=== PATIENT | female | born 1940 | race Caucasian/White ===

== ENCOUNTER → 2016-10-22 | Outpatient (CLI) | payer OTHER, BC ==
[~2016-10-22] VITALS: Ht 167.6 cm; Wt 80.2 kg
[~2016-10-22] MED LIST: ALEVE220 M1 PO; ALEVE220 MG PO; AVAPRO75 MG PO; BENADRYL25 MG PO; COZAAR 50 MG TA50 M2 PO; DURAGESIC1 EAC2 TD; FENTANYL PA12 MCG/HR TD; FENTANYL PA12 MCG/HR TP; FENTANYL PA25 MCG/HR TP; HYDROCODON-ACE1 EAC7 PO; HYDROCODON-ACE1 EACH PO; HYDROCODONE-AP1 EAC6 PO; KEFLEX500 M1 PO; LEVOTHYROXIN0.025 MG PO; LIDODERM 5%1 PATCH TOP; LISINOPRIL10 MG PO; LIVALO2 MG PO; MELOXICAM7.5 MG PO; MIRAPEX0.25 MG PO; MOBIC7.5 M1 PO; NORCO 5-325 TA1 EACH PO; PREVACID 30MG C30 M1 PO; REMERON15 MG PO; SAVELLA50 MG PO; SOMA250 MG PO; VOLTAREN GEL 1100 GM TOP; XANAX 0.5 MG0.5 MG PO; ZOLOFT 50 MG TA50 M1 PO
--- NOTE | ~2016-10-22 | HPC ---
[facility] [place] [address] PAIN MANAGEMENT CONSULTATION Name: MOHAN ELIZABETH Room #: REG Lynn Ludwin.#: [id number] Admission: 10/22/16 Attend Phys: Toney Springer DO Discharge: Date of : 41 Report #: [id number] THIS REPORT FOR: //name// CC: Brayan Springer The patient is 76-year-old female typically treated for chronic pain issues, status post lumbar decompressive laminectomy and has DJD primarily affecting knees. She has been generally stable on Duragesic 12 mcg q. 72 hours, and hydrocodone 5/325 fairly infrequent use 1 or 2 to a day. Uses mirtazapine for sleep h.s. and for some anxiety issues. Last urine drug screen 07/31/2016 was positive for prescribed medications. The patient returns to pain clinic today. She is a little bit bradycardic, pulse in the 40s but she denies specific hypotension or presyncopal symptoms. Blood pressure is otherwise low but normal. She is alert and oriented to person, place, and time, judged to be a reasonable historian. Some ongoing shoulder issues, slight decreased range of motion to abduction. Primary pain is axial back and knees. She has been back and forth with multiple orthopedic surgeons. I suspect she does require total knee arthroplasty; however, she is able to ambulate and is getting around generally well. Gait is minimally antalgic. Hence I support her decision to simply treat conservatively. She and her are downsizing their 4500 square feet home to a 1400 square foot condo. She has been going through a lot of boxes in the basement. She states that she is doing this at a reasonable space and has not had significant exacerbation of axial back pain. Rates her current pain score anywhere from 4-6 on a 0-10 visual analog scale. PHYSICAL EXAMINATION: Again, a little bradycardic but otherwise no change from last visit, alert and oriented to person, place and time. She does appear to be reasonable historian (at times, she has been a little "scattered." Today, she seems much more on point.) NECK: Cervical range of motion is adequate. Right arm slightly decreased abduction. Strength is about 4/5 to all muscle groups tested. MUSCULOSKELETAL: Rises from the chair easily, gait is generally tandem. Diffuse tenderness across the low back. Lumbar flexion is limited. ASSESSMENT: Patient has spinal cord stimulator in place which she uses fairly infrequently. States she had some trouble trying to chart the device. I suggest at the next visit, we will have [employer] rep here to revise stimulation patterns and review charging the device (patient notes that she has had some technical issues with charging the SCS generator). [facility] [address] [place] [address] PAIN MANAGEMENT CONSULTATION Name: MOHAN ELIZABETH Room #: REG GIGI Arteaga#: [id number] Admission: 10/22/16 Attend Phys: Toney Springer DO Discharge: Date of : 41 Report #: [id number] We spent a prolonged visit today discussing general concerns with Ms. Elizabeth. She was seen for approximately 25 minutes from 9 a.m. to 9:25 a.m. Greater than 50% of this time was spent counseling the patient. Discharged in good and stable condition. <ELECTRONICALLY SIGNED> By: Toney Springer DO 10/23/16 0904 [id number] Toney Springer DO /nt
[2016-10-22 09:08] VITALS: BP 137/62
== END | disposition home or self-care (01) ==
LOC: PAIN 07:05
DX: R00.1 Bradycardia, unspecified (principal); M54.5 Low back pain; M25.562 Pain in left knee; M25.561 Pain in right knee

== ENCOUNTER → 2016-12-17 | Outpatient (CLI) | payer OTHER, BC ==
[~2016-12-17] VITALS: Ht 167.6 cm; Wt 81.9 kg
--- NOTE | ~2016-12-17 | HPC ---
[facility] [place] [address] [place] [address] PAIN MANAGEMENT CONSULTATION Name: DUANEMOHAN B Room #: REG GIGI Arteaga#: [id number] Admission: 12/17/16 Attend Phys: Toney Springer DO Discharge: Date of : 41 Report #: [id number] THIS REPORT FOR: //name// CC: Brayan Springer HISTORY OF PRESENT ILLNESS: The patient is a 76-year-old female being treated for lumbar radiculopathy status post decompressive laminectomy, DJD affecting knees and shoulders requiring complex medication management. Last seen in the pain clinic 07/31/2016, continued on baseline medication including Duragesic 12 mcg q.72 hours, hydrocodone 5/325 one tablet p.r.n., limit 75 tablets for 30 days. We had trialed mirtazapine at bedtime though it is unclear whether she is using it and meloxicam 7.5 b.i.d, she uses p.r.n. Returns to pain clinic today noting pain in her knees and shoulders ____ problematic. She is also complaining of more radicular component of pain in her legs. She thinks her knee pain is actually more radicular in nature. She has seen 3 different orthopedic surgeons, Dr. Serg Raman, Dr. Hooker and Dr. Petty, all suggesting while she does have some component of DJD in her knees, her primary pathology is in her back. We spent a prolonged visit today, greater than 25 minutes was spent with the patient. We reviewed her bilateral knee x-rays from 05/23/2016 noting bilateral tricompartment osteoarthritis. There was a 7 mm calcific body in the posterior aspect medial compartment of the right knee. We reviewed MRI of the lumbar spine from 2012, which noted prior fusion L4 through S1 There was a little central stenosis at L2-L3 down to 7-8 mm, bilateral facet hypertrophy at L3-L4, noted facet degenerative changes with a small disk extrusion at this level. Canal diameter is well maintained throughout the fused segment. CT of the lumbar spine was accomplished in September 2016, reviewing this reading, again pedicle screws and rafat fixation noted L4 through S1, facet degenerative changes at L2-L3, 5 mm ligamentum flavum hypertrophy contributing at this point to fairly severe central stenosis at 6 mm. L3-L4 similarly shows broad-based disk protrusion with central canal decompressed laminectomy and the fusion level below this with canal patent. PHYSICAL EXAMINATION: GENERAL: A 76-year-old female, alert and oriented to person, place, and time, judged to be a reasonable historian. VITAL SIGNS: BMI is 29.2 kilograms per meter squared. Vital signs stable. MUSCULOSKELETAL: Rises from chair fairly easily. Gait is generally tandem. Diffuse tenderness across the low back, no dramatic pathology noted. Lower extremity strength is generally symmetric. Modestly positive straight leg raise on the left. The patient tells me that she and her have moved out of their larger home they lived in for many years. [place] [address] PAIN MANAGEMENT CONSULTATION Name: MOHAN ZEPEDA Room #: REG CLI Jenni#: [id number] Admission: 12/17/16 Attend Phys: Toney Springer DO Discharge: Date of : 41 Report #: [id number] redoing a condominium that they are moving into. It is nearly a third the size of their prior home. They are anticipating to join their "down sized" living; however, living with friends while home is obviously is a bit distressful, but the patient says she is doing reasonably well. We reviewed the fact that opiate medications are being used to provide analgesia adequate to support activities of daily living, not attempting to achieve a specific pain score on the 0-10 Visual Analog Scale. The current opiate medications are providing sufficient analgesia to allow the patient to participate in activities of daily living. The patient is not exhibiting any aberrant behavior suggestive of drug diversion. The patient is not having any adverse reactions to medications. The patient is not suffering from daytime somnolence or mental acuity changes. The patient is managing opiate-induced constipation with appropriate wbwa-jty-sdeksmi agents and dietary considerations. The patient was counseled on concern for caution with operating a motor vehicle while using opiate medications. A physical exam was performed and the patient's functional status was evaluated. All patients with back pain were advised against the bed rest greater than 4 days and were advised to return to normal activities. Pain score assessment was noted and the treatment plan was reviewed with the patient. All current medications, both prescribed and OTC were reviewed and reconciled on the electronic medical record. Tobacco screening was accomplished and smoking cessation was advised when indicated. BMI was noted and diet/exercise modification was recommended for all patients following outside normal parameters. I reviewed with the patient today their responsibilities to safeguard prescription medications, reviewed their responsibility to utilize medications only as prescribed by the physician. They are to seek and receive pain medications only from 1 physician group ( [facility]). They are to use 1 pharmacy and keep the clinic informed if they change pharmacies. Their responsibilities include making followup visits in a timely fashion and to avoid abrupt discontinuation of medication usage. Their responsibilities further include bringing their medications (bottles from the pharmacy with residual pills) to the visit for possible confirmation of pill counts and the patient understands it is their responsibility to submit to random drug screens to ensure both that the medications prescribed are present, and that no other controlled substances are present. All prescriptions provided today were generated electronically. ASSESSMENT: Lumbar radiculopathy status post decompressive laminectomy; degenerative joint disease affecting knees; some shoulder pain requiring complex medication management, stable on baseline medications. [facility] [address] [place] [address] PAIN MANAGEMENT CONSULTATION Name: MOHAN ZEPEDA [facility] [id number] Admission: 12/17/16 Attend Phys: Toney Springer DO Discharge: Date of : 41 Report #: [id number] RECOMMENDATION: Renew Duragesic 12 mcg q.72 hours, hydrocodone 5/325 as needed for pain, 2-3 tablets, limit 75 tablets for 30 days. By: [id number] Toney Springer DO /nt
== END ==
LOC: PAIN 12:37
DX: M54.16 Radiculopathy, lumbar region (principal); M96.1 Postlaminectomy syndrome, not elsewhere classified; M17.0 Bilateral primary osteoarthritis of knee; M19.012 Primary osteoarthritis, left shoulder; M19.011 Primary osteoarthritis, right shoulder; I10 Essential (primary) hypertension

== ENCOUNTER → 2017-01-15 | Outpatient (CLI) | payer OTHER, BC ==
[~2017-01-15] VITALS: Ht 167.6 cm; Wt 80.5 kg
[~2017-01-15] MED LIST changes: +ZANAFLEX4 MG PO
--- NOTE | ~2017-01-15 | HPC ---
[facility] [place] [address] PAIN MANAGEMENT CONSULTATION Name: MOHAN ZEPEDA Room #: REG Lynn Arteaga#: [id number] Admission: 01/15/17 Attend Phys: Toney Springer DO Discharge: Date of : 41 Report #: [id number] THIS REPORT FOR: //name// CC: Brayan Springer HISTORY OF PRESENT ILLNESS: The patient is a 77-year-old female well known to the pain clinic, typically treated for lumbar radiculopathy status post decompressive laminectomy, degenerative joint disease affecting bilateral knees and to some degree, shoulders, requiring complex medication management. Last seen in the pain clinic 12/17/2016, continued on Duragesic 12 mcg q. 72 hours, hydrocodone 5/325 one tablet 2-3 times a day, limit 75 tablets for 30 days. Last urine drug screen 07/23/2016 was positive for prescribed medication. Opiate consent to treat contract was signed on 05/23/2016. The patient returns to pain clinic today, seen in the company of her who is supportive. She was seen for a prolonged visit from 10:55-11:25 greater than 50% of the 30-minute visit was spent counseling the patient. She notes the mirtazapine we had a trialed to help with insomnia and some chronic anxiety and depression, she self-discontinued due to cognitive impairment. Does complain of ongoing issues with insomnia. We did discuss sleep hygiene at length prior to this and we reviewed this again today (no reading or watching TV in the bed, get out of bed if she does not fall asleep within 15-30 minutes. No alcohol after about 6:00 p.m.). The patient complains primarily pain in her knees with some ongoing pain in the shoulders and back. She has had apparently steroid and Synvisc injections in her knees with no efficacy. She is seen multiple orthopedic surgeon, many suggesting total knee arthroplasties. I had ordered x-rays of her bilateral knees which was accomplished last summer showing tricompartment arthritis in both knees. We reviewed those today. The patient states she ultimately decided that she should move forward with total knee arthroplasty. She had prior seen Dr. Zuleta who I am told her and has a very good reputation for total knee arthroplasty. She has asked for another name and we suggested Dr. Scout Isaacs. For some reason, she had a personality clash with Dr. Serg Raman and will prefer not to follow up with him. I assured her that Dr. Raman is a very competent surgeon. She has been using Voltaren gel topically with some efficacy for her knees. She notes they have changed locations and now live in a home that is [facility] with the bedrooms on the second floor. Her attests the fact that she has a very difficult time climbing the stairs. She claims that secondary to knee pain. They are asking for prescription for some sort of electronic device to carry the patient up and down the stairs. I told them that I was unfamiliar with writing for this, but I would recommend that she follow up with an orthopedic surgeon who may have a better ability to make objective determination if any assistance [address] [address] PAIN MANAGEMENT CONSULTATION Name: MOHAN ZEPEDA Room #: REG GIGI Arteaga#: [id number] Admission: 01/15/17 Attend Phys: Toney Springer, DO Discharge: Date of : 41 Report #: [id number] device was warranted. I am not certain that insurance would cover such a device. The patient notes she lost the [employer] spinal cord stimulator generator in the move. Her stimulator has now lost charge. She notes when she was using it prior it gave her "soothing" affect and did decrease pain, though she is quick to note that it "did NOT make her pain free". I again, reviewed with the patient that nothing we are going to do will make her "pain free" we are, however, attempting to simply minimize symptoms to the point that she is little more functional. The patient notes her pain score is 5/10 today. PHYSICAL EXAMINATION: GENERAL: Reveals a 77-year-old female, BMI is 20.6 kilograms per meter squared. VITAL SIGNS: Stable as noted in the EMR. NEUROLOGIC: Alert and oriented to person, place and time, judged to be a reasonable historian. MUSCULOSKELETAL: Upper extremity strength is preserved, shoulder range of motion is adequate. Subjective pain in her bilateral knees, modestly antalgic gait. EXTREMITIES: Directions inspection of the knees reveals no ballotable edema, no crepitance with patellar deviation, medial, lateral, and collateral as well as anterior, posterior, anterior and posterior cruciate ligaments, all appear intact. She does have some osseous hypertrophy about noticeable in both knees. We reviewed the fact that opiate medications are being used to provide analgesia adequate to support activities of daily living, not attempting to achieve a specific pain score on the 0-10 Visual Analog Scale. The current opiate medications are providing sufficient analgesia to allow the patient to participate in activities of daily living. The patient is not exhibiting any aberrant behavior suggestive of drug diversion. The patient is not having any adverse reactions to medications. The patient is not suffering from daytime somnolence or mental acuity changes. The patient is managing opiate-induced constipation with appropriate aebv-jyr-zqrljrl agents and dietary considerations. The patient was counseled on concern for caution with operating a motor vehicle while using opiate medications. A physical exam was performed and the patient's functional status was evaluated. All patients with back pain were advised against the bed rest greater than 4 days and were advised to return to normal activities. Pain score assessment was noted and the treatment plan was reviewed with the patient. All current medications, both prescribed and OTC were reviewed and reconciled on the electronic medical record. Tobacco screening was accomplished and smoking cessation was advised when indicated. BMI was noted and diet/exercise modification was recommended for all patients following outside normal parameters. [address] [address] PAIN MANAGEMENT CONSULTATION Name: MOHAN ZEPEDA Room #: REG [facility] Ludwin.#: [id number] Admission: 01/15/17 Attend Phys: Toney Springer DO Discharge: Date of : 41 Report #: [id number] I reviewed with the patient today their responsibilities to safeguard prescription medications, reviewed their responsibility to utilize medications only as prescribed by the physician. They are to seek and receive pain medications only from 1 physician group ([facility]). They are to use 1 pharmacy and keep the clinic informed if they change pharmacies. Their responsibilities include making followup visits in a timely fashion and to avoid abrupt discontinuation of medication usage. Their responsibilities further include bringing their medications (bottles from the pharmacy with residual pills) to the visit for possible confirmation of pill counts and the patient understands it is their responsibility to submit to random drug screens to ensure both that the medications prescribed are present, and that no other controlled substances are present. All prescriptions provided today were generated electronically. ASSESSMENT: 1. Lumbar radiculopathy status post decompressive laminectomy with chronic axial back pain. 2. Degenerative joint disease, primarily knees with some component of shoulder pain, again requiring complex medication management. RECOMMENDATIONS: After discussion with the patient today, we elected to continue baseline narcotic unchanged, Duragesic 12 mcg q. 72 hours and hydrocodone 5/325 one tablet 2-3 times a day, limit 75 tablets for 30 days. She is not having any problems with daytime somnolence, mental acute changes, constipation. She is complaining of ongoing insomnia. Again, we reviewed his sleep hygiene concerns and I have taken the liberty of writing for tizanidine 4 mg at bedtime p.r.n. muscle spasm or insomnia, 30 tablets with 1 refill. FOLLOWUP: In 2 months for reevaluation. Prior discontinued Meloxicam due to gastroesophageal reflux. She does feel Voltaren gel topically is helpful and I did renew prescription for this as well. We will arrange the [employer] available patients next visit to interrogate and help instruct on recharging the now depleted generator. <ELECTRONICALLY SIGNED> By: Toney Springer DO 01/18/17 0750 [id number] Toney Springer DO /nt
[2017-01-15 10:50] VITALS: BP 121/60
== END | disposition home or self-care (01) ==
LOC: PAIN 07:15
DX: M54.16 Radiculopathy, lumbar region (principal); G89.29 Other chronic pain; M17.0 Bilateral primary osteoarthritis of knee; M25.511 Pain in right shoulder; M25.512 Pain in left shoulder; F41.9 Anxiety disorder, unspecified; F11.20 Opioid dependence, uncomplicated; F32.9 Major depressive disorder, single episode, unspecified; Z98.890 Other specified postprocedural states

== ENCOUNTER → 2017-03-15 | Outpatient (CLI) | payer OTHER, BC ==
[~2017-03-15] VITALS: Ht 167.6 cm; Wt 78.2 kg
--- NOTE | ~2017-03-15 | HPC ---
[facility] [place] [address] PAIN MANAGEMENT CONSULTATION Name: DUANEMOHAN B [facility] [id number] Admission: 03/15/17 Attend Phys: Toney Springer DO Discharge: Date of : 41 Report #: [id number] THIS REPORT FOR: //name// CC: Brayan Springer DATE OF SERVICE: 03/15/2017 HISTORY OF PRESENT ILLNESS: The patient is a 77-year-old female being treated for lumbar radiculopathy, status post decompressive laminectomy; DJD affecting both knees requiring complex medication management. Last seen in pain clinic on 01/15/2017. Urine drug screen back in July was positive for prescribed medications. She returns to pain clinic today. We had a prolonged visit. I did ask [employer] to come and interrogate the patient's stimulator. The patient states she feels she is "deteriorating." She notes left shoulder remains problematic, bilateral knee pain, she has had steroid injections and Synvisc injections, there is really no efficacy. Notes her legs get weak with walking. She notes if she goes greater than 72 hours with Duragesic patch that she starts to have increasing pain realizing that the medicine is helping. She has gone through 75 hydrocodone 5/325 in 30 days, actually anywhere from 0 to 5 tablets. Last tablet was this morning. PHYSICAL EXAMINATION: Shows a 77-year-old female, BMI is 27.8 kilograms per meter squared. Vital signs are stable as noted in the EMR. Rises from chair using armrest. Gait is tandem. Lower extremity strength is generally preserved at this time. Straight leg raise is negative. Diffuse tenderness across the low back. The stimulator was interrogated; it has reached a terminal discharge. We have instructed the patient about trying to recharge the device and we will then review stimulation patterns. We reviewed the fact that opiate medications are being used to provide analgesia adequate to support activities of daily living, not attempting to achieve a specific pain score on the 0-10 Visual Analog Scale. The current opiate medications are providing sufficient analgesia to allow the patient to participate in activities of daily living. The patient is not exhibiting any aberrant behavior suggestive of drug diversion. The patient is not having any adverse reactions to medications. The patient is not suffering from daytime somnolence or mental acuity changes. The patient is managing opiate-induced constipation with appropriate jyjy-sfs-joahqip agents and dietary considerations. The patient was counseled on concern for caution with operating a motor vehicle while using opiate medications. A physical exam was performed and the patient's functional status was evaluated. All patients with back pain were advised against the bed rest greater than [address] [address] PAIN MANAGEMENT CONSULTATION Name: MOHAN ZEPEDA Room #: REG GIGI Arteaga#: [id number] Admission: 03/15/17 Attend Phys: Toney Springer DO Discharge: Date of : 41 Report #: [id number] days and were advised to return to normal activities. Pain score assessment was noted and the treatment plan was reviewed with the patient. All current medications, both prescribed and OTC were reviewed and reconciled on the electronic medical record. Tobacco screening was accomplished and smoking cessation was advised when indicated. BMI was noted and diet/exercise modification was recommended for all patients following outside normal parameters. I reviewed with the patient today their responsibilities to safeguard prescription medications, reviewed their responsibility to utilize medications only as prescribed by the physician. They are to seek and receive pain medications only from 1 physician group ( [facility]). They are to use 1 pharmacy and keep the clinic informed if they change pharmacies. Their responsibilities include making followup visits in a timely fashion and to avoid abrupt discontinuation of medication usage. Their responsibilities further include bringing their medications (bottles from the pharmacy with residual pills) to the visit for possible confirmation of pill counts and the patient understands it is their responsibility to submit to random drug screens to ensure both that the medications prescribed are present, and that no other controlled substances are present. All prescriptions provided today were generated electronically. ASSESSMENT: Lumbar radiculopathy, status post decompressive laminectomy; degenerative joint disease affecting both knees requiring complex medication management. RECOMMENDATIONS: Continue Duragesic 12 mcg q. 72 hours; hydrocodone 5/325, limit 75 tablets for 30 days; tizanidine 4 mg at bedtime. Follow up in 2 months for reevaluation. <ELECTRONICALLY SIGNED> By: Toney Springer DO 03/17/17 1252 [id number] Toney Springer DO /nt
[2017-03-15 13:15] VITALS: BP 102/65
== END ==
LOC: PAIN 06:45
DX: M54.16 Radiculopathy, lumbar region (principal); M96.1 Postlaminectomy syndrome, not elsewhere classified; M17.0 Bilateral primary osteoarthritis of knee

== ENCOUNTER → 2017-05-10 | Outpatient (CLI) | payer OTHER, BC ==
[~2017-05-10] VITALS: Ht 167.6 cm; Wt 78.2 kg
--- NOTE | ~2017-05-10 | HPC ---
[facility] [place] [address] PAIN MANAGEMENT CONSULTATION Name: DUANEMOHAN B Room #: [facility] [id number] Admission: 05/10/17 Attend Phys: Toney Springer DO Discharge: Date of : 41 Report #: [id number] THIS REPORT FOR: //name// CC: Brayan Springer The patient is a 77-year-old female, long treated for chronic pain issues, status post lumbar decompressive laminectomy with DJD affecting knees and now left shoulder, requiring complex medication management. Last visit 03/15/2017, she was continued on baseline medication including Duragesic 12 mcg q.72 hours and hydrocodone 5/325 one tablet 2-3 times a day, limit 75 tablets for 30 days. Urine drug screen at that time was positive for prescribed medications. The patient also uses Voltaren gel topically, and tizanidine 4 mg at bedtime for muscle spasm and for sedation. She returns to pain clinic today, again typically she was having problems with her back and knees. She notes recently she is having increasing pain in her left shoulder. She did see an orthopedic surgeon who suggested she may require left shoulder replacement. Physical exam does show decreased both active and passive range of motion in the left shoulder with pain to active and passive rotation as well. Knees actually appear pretty unremarkable. Gait is tandem today. We reviewed the fact that opiate medications are being used to provide analgesia adequate to support activities of daily living, not attempting to achieve a specific pain score on the 0-10 Visual Analog Scale. The current opiate medications are providing sufficient analgesia to allow the patient to participate in activities of daily living. The patient is not exhibiting any aberrant behavior suggestive of drug diversion. The patient is not having any adverse reactions to medications. The patient is not suffering from daytime somnolence or mental acuity changes. The patient is managing opiate-induced constipation with appropriate ngtm-muk-rypyrym agents and dietary considerations. The patient was counseled on concern for caution with operating a motor vehicle while using opiate medications. A physical exam was performed and the patient's functional status was evaluated. All patients with back pain were advised against the bed rest greater than 4 days and were advised to return to normal activities. Pain score assessment was noted and the treatment plan was reviewed with the patient. All current medications, both prescribed and OTC were reviewed and reconciled on the electronic medical record. Tobacco screening was accomplished and smoking cessation was advised when indicated. BMI was noted and diet/exercise modification was recommended for all patients following outside normal parameters. I reviewed with the patient today [place] [address] PAIN MANAGEMENT CONSULTATION Name: MOHAN ZEPEDA Room #: REG [facility] GregorAllan#: [id number] Admission: 05/10/17 Attend Phys: Toney Springer DO Discharge: Date of : 41 Report #: [id number] prescription medications, reviewed their responsibility to utilize medications only as prescribed by the physician. They are to seek and receive pain medications only from 1 physician group ( [facility]). They are to use 1 pharmacy and keep the clinic informed if they change pharmacies. Their responsibilities include making followup visits in a timely fashion and to avoid abrupt discontinuation of medication usage. Their responsibilities further include bringing their medications (bottles from the pharmacy with residual pills) to the visit for possible confirmation of pill counts and the patient understands it is their responsibility to submit to random drug screens to ensure both that the medications prescribed are present, and that no other controlled substances are present. All prescriptions provided today were generated electronically. PHYSICAL EXAMINATION: Shows a 77-year-old female, BMI is 29.7 kg/m2. Vital signs stable as noted on the EMR. Again, gait is generally tandem. Very tender left shoulder, decreased range of motion. Knees are unremarkable as far as ligaments. There is a little ballotable edema, no significant pain with patellar deviation. 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 RECOMMENDATION: I have taken the liberty of renewing Duragesic 12 mcg q.72 hours, hydrocodone 5/325, limit 75 tablets for 30 days, Voltaren gel topically and tizanidine at bedtime. Follow up in 2 months for reevaluation. <ELECTRONICALLY SIGNED> By: Toney Springer DO 05/12/17 0801 [id number] Toney Springer DO /nt
[2017-05-10 14:48] VITALS: BP 135/78
== END | disposition home or self-care (01) ==
LOC: PAIN 06:53
DX: Z76.0 Encounter for issue of repeat prescription (principal); G89.29 Other chronic pain; M17.0 Bilateral primary osteoarthritis of knee; M19.012 Primary osteoarthritis, left shoulder; M54.16 Radiculopathy, lumbar region; Z79.891 Long term (current) use of opiate analgesic; Z79.899 Other long term (current) drug therapy

== ENCOUNTER → 2017-07-05 | Outpatient (CLI) | payer OTHER, BC ==
[~2017-07-05] VITALS: Ht 167.6 cm; Wt 76.7 kg
[~2017-07-05] MED LIST changes: +DURAGESIC1 EAC2 TRANSDERM
--- NOTE | ~2017-07-05 | HPC ---
[facility] [place] [address] PAIN MANAGEMENT CONSULTATION Name: DUANEMOHAN B Room #: REG [facility] [id number] Admission: 07/05/17 Attend Phys: Toney Springer DO Discharge: Date of : 41 Report #: [id number] THIS REPORT FOR: //name// CC: Brayan Springer DATE OF SERVICE: 07/05/2017 The patient is a 77-year-old female typically treated for lumbar radiculopathy status post decompressive laminectomy, DJD bilateral knees, chronic pain syndrome requiring high risk complex medication management. She was last seen in pain clinic 05/10/2017. Prior urine drug screen 03/15/2017 is positive for prescribed medications. She returns to pain clinic today noting medications are providing sufficient analgesia to participate in activities of daily living, rates her average pain as 3-4 on a VAS. Pain is exacerbated with standing and walking. Pain is primarily in the bilateral knees, shoulders and back. She notes medications are quite helpful. She is able to participate in all activities of daily living. She did ask today about CBD oil. Many patients have been asking about this. I pointed out that there are no controlled medical studies regarding this homeopathic-type product. We reviewed the fact that opiate medications are being used to provide analgesia adequate to support activities of daily living, not attempting to achieve a specific pain score on the 0-10 Visual Analog Scale. The current opiate medications are providing sufficient analgesia to allow the patient to participate in activities of daily living. The patient is not exhibiting any aberrant behavior suggestive of drug diversion. The patient is not having any adverse reactions to medications. The patient is not suffering from daytime somnolence or mental acuity changes. The patient is managing opiate-induced constipation with appropriate hadt-elr-mtpjlkq agents and dietary considerations. The patient was counseled on concern for caution with operating a motor vehicle while using opiate medications. A physical exam was performed and the patient's functional status was evaluated. All patients with back pain were advised against the bed rest greater than 4 days and were advised to return to normal activities. Pain score assessment was noted and the treatment plan was reviewed with the patient. All current medications, both prescribed and OTC were reviewed and reconciled on the electronic medical record. Tobacco screening was accomplished and smoking cessation was advised when indicated. BMI was noted and diet/exercise modification was recommended for all patients following outside normal parameters. I reviewed with the patient today their responsibilities to safeguard prescription medications, reviewed their responsibility to utilize medications [address] [address] PAIN MANAGEMENT CONSULTATION Name: MOHAN ZEPEDA Room #: REG [facility]#: [id number] Admission: 07/05/17 Attend Phys: Toney Springer DO Discharge: Date of : 41 Report #: [id number] only as prescribed by the physician. They are to seek and receive pain medications only from 1 physician group ( [facility]). They are to use 1 pharmacy and keep the clinic informed if they change pharmacies. Their responsibilities include making followup visits in a timely fashion and to avoid abrupt discontinuation of medication usage. Their responsibilities further include bringing their medications (bottles from the pharmacy with residual pills) to the visit for possible confirmation of pill counts and the patient understands it is their responsibility to submit to random drug screens to ensure both that the medications prescribed are present, and that no other controlled substances are present. All prescriptions provided today were generated electronically. PHYSICAL EXAMINATION: Shows a 77-year-old female, BMI is 27.3 kilograms per meter squared. Vital signs stable as noted in the EMR. Does have some osseous hypertrophy in her knees. No ballotable edema is noted today. Gait is modestly antalgic. Diffuse tenderness across the low back. No discrete trigger points are noted. ASSESSMENT: Lumbar radiculopathy status post decompressive laminectomy, degenerative joint disease affecting bilateral knees, chronic pain syndrome requiring high risk complex medication management. RECOMMENDATION: Continue current medication unchanged, Duragesic 12 mcg q. 72 hours, hydrocodone 5/325 one tablet 3 times a day, limit to 75 tablets for 30 days, Voltaren gel topically and tizanidine 4 mg at bedtime as needed for spasm. Follow up in 2 months for reevaluation. <ELECTRONICALLY SIGNED> By: Toney Springer DO 07/07/17 0752 [id number] Toney Springer DO /nt
[2017-07-05 13:58] VITALS: BP 106/62
== END ==
LOC: PAIN 07:34
DX: Z76.0 Encounter for issue of repeat prescription (principal); M54.16 Radiculopathy, lumbar region; M17.0 Bilateral primary osteoarthritis of knee; G89.29 Other chronic pain; Z98.890 Other specified postprocedural states; Z79.899 Other long term (current) drug therapy; M54.5 Low back pain; Z79.891 Long term (current) use of opiate analgesic; I10 Essential (primary) hypertension

== ENCOUNTER → 2017-09-13 | Outpatient (CLI) | payer OTHER, BC ==
[~2017-09-13] VITALS: Ht 167.6 cm; Wt 78.2 kg
[~2017-09-13] MED LIST changes: +CELEBREX 200 M200 M1 PO; +VOLTAREN GEL 1100 G1 TOP
--- NOTE | ~2017-09-13 | HPC ---
[facility] [place] [address] [place] [address] PAIN MANAGEMENT CONSULTATION Name: MOHAN ZEPEDA Room #: REG [facility] Jenni#: [id number] Admission: 09/13/17 Attend Phys: Toney Springer DO Discharge: Date of : 41 Report #: [id number] THIS REPORT FOR: //name// CC: Brayan Springer The patient is a 77-year-old female, long known to the pain clinic, being treated for symptomatic lumbar radiculopathy status post decompressive laminectomy, DJD bilateral knees, chronic pain syndrome requiring high risk complex medication management. The patient was last seen in the pain clinic 07/05/2017, continued on baseline medications including Duragesic at 12 mcg q.72 hours, tizanidine 4 mg t.i.d., and hydrocodone 5/325, limit 75 tablets for 30 days. She returns to pain clinic today noting medications are generally helpful. Ongoing left knee pain is worse today, she has been told she needs total knee arthroplasty, she has seen a host of orthopedic surgeons, she is hesitant to move forward. Bottom line is she has been reasonably stable with current medications, rates the pain is a 6-7 on VAS. No problems with daytime somnolence, mental acuity changes, or constipation. We reviewed the fact that opiate medications are being used to provide analgesia adequate to support activities of daily living, not attempting to achieve a specific pain score on the 0-10 Visual Analog Scale. The current opiate medications are providing sufficient analgesia to allow the patient to participate in activities of daily living. The patient is not exhibiting any aberrant behavior suggestive of drug diversion. The patient is not having any adverse reactions to medications. The patient is not suffering from daytime somnolence or mental acuity changes. The patient is managing opiate-induced constipation with appropriate crdm-zbx-eaczhuw agents and dietary considerations. The patient was counseled on concern for caution with operating a motor vehicle while using opiate medications. A physical exam was performed and the patient's functional status was evaluated. All patients with back pain were advised against the bed rest greater than 4 days and were advised to return to normal activities. Pain score assessment was noted and the treatment plan was reviewed with the patient. All current medications, both prescribed and OTC were reviewed and reconciled on the electronic medical record. Tobacco screening was accomplished and smoking cessation was advised when indicated. BMI was noted and diet/exercise modification was recommended for all patients following outside normal parameters. I reviewed with the patient today their responsibilities to safeguard prescription medications, reviewed their responsibility to utilize medications only as prescribed by the physician. They are to seek and receive pain medications only from 1 physician group ( [facility]). They are to use [address] [place] [address] PAIN MANAGEMENT CONSULTATION Name: MOHAN ZEPEDA Room #: REG [facility] Arteaga#: [id number] Admission: 09/13/17 Attend Phys: Toney Springer DO Discharge: Date of : 41 Report #: [id number] pharmacy and keep the clinic informed if they change pharmacies. Their responsibilities include making followup visits in a timely fashion and to avoid abrupt discontinuation of medication usage. Their responsibilities further include bringing their medications (bottles from the pharmacy with residual pills) to the visit for possible confirmation of pill counts and the patient understands it is their responsibility to submit to random drug screens to ensure both that the medications prescribed are present, and that no other controlled substances are present. All prescriptions provided today were generated electronically. PHYSICAL EXAMINATION: Shows a 77-year-old female, BMI is 27.8 kg/m2. Vital signs are stable as noted in the EMR. Rises from chair using armrest. Modestly antalgic gait. No ballotable edema appreciable in the knees at this time. Diffuse axial back pain. ASSESSMENT: Symptomatic lumbar radiculopathy status decompressive laminectomy, degenerative joint disease affecting bilateral knees, chronic pain syndrome requiring high risk complex medication management, stable on baseline medications. RECOMMENDATION: Renew Duragesic 12 mcg, hydrocodone 5/325, 75 tablets for 2 months. Follow up at that time, earlier if needed. We will likely get a buccal drug swab at next visit, it has been about a year since her last random drug screen. <ELECTRONICALLY SIGNED> By: Toney Springer DO 09/17/17 0943 [id number] Toney Springer DO /nt
[2017-09-13 13:26] VITALS: BP 140/64
== END ==
LOC: PAIN 06:50
DX: M17.0 Bilateral primary osteoarthritis of knee (principal); M54.16 Radiculopathy, lumbar region; Z79.899 Other long term (current) drug therapy

== ENCOUNTER → 2017-11-12 | Outpatient (CLI) | payer OTHER, BC ==
[~2017-11-12] VITALS: Ht 167.6 cm; Wt 77.5 kg
[~2017-11-12] MED LIST changes: +REQUIP 0.25 M0.25 MG PO
--- NOTE | ~2017-11-12 | HPC ---
[facility] [address] [address] PAIN MANAGEMENT CONSULTATION Name: ARACELIKaylinIrvinMOHAN Lavern Room #: REG [facility].#: [id number] Admission: 11/12/17 Attend Phys: Rachel Brand MD Discharge: Date of : 41 Report #: [id number] THIS REPORT FOR: //name// CC: Brayan Brand DATE OF SERVICE: 11/12/2017 FOLLOWUP COMPLAINT: "Here for medication refill and I have pain in my shoulders across the lower back and I have been sleeping well." FOLLOWUP HISTORY: The patient is a 77-year-old female who has been followed in the pain clinic because of chronic pain involving her shoulders, knees and low back area. She has been followed in the pain clinic because of these discomforts. She has a history of symptomatic lumbar radiculopathy and is status post decompression laminectomy with bilateral degenerative joint disease in her knees. She has been treated over the long-term with complex medication regimen management. She continues to find Duragesic, tizanidine 4 mg t.i.d. and hydrocodone efficacious. She feels that her medications continue to be helpful and would like to have them renewed at this juncture. She rates her pain as a 6-7 at this juncture. The patient and her are feeling stressed. They live in a unit where one of her neighbors continues to complain about her 's and her noise level. She feels harassed by this neighbor. This has left her extremely upset and distraught. This adds to her level of pain and discomfort. She finds that her fibromyalgia and restless leg syndrome continue to be problematic. PHYSICAL EXAMINATION: GENERAL: The patient is a well-developed, well-nourished female. Appears her stated age. She is alert and oriented x 3. Affect appears appropriate. HEENT: Head is atraumatic. Ears: Normal hearing. Eyes: Extraocular eye muscles intact. Nasal complaints, none. Buccal membranes moist. NECK: Without adenopathy. MUSCULATURE: Appeared normal alignment without significant scoliosis, kyphosis or lordosis. Complains of pain and discomfort in the area of her knees. Has some generalized pain and discomfort associated with fibromyalgia. Raises from her chair using the armrest. A modest antalgic gait. PAIN CLINIC ASSESSMENT: 1. History of osteoarthritis involving the spine, hands, feet, shoulders and knees. No significant rheumatoid arthritis. 2. Height 5 feet 6 inches, weight 170 pounds, BMI is 27.6. 3. Vital Signs: Blood pressure 100/68, pulse 85, respiratory rate 14, room air saturation 98%. [place] [address] PAIN MANAGEMENT CONSULTATION Name: MOHAN ZEPEDA Room #: REG [facility] [id number] Admission: 11/12/17 Attend Phys: Rachel Brand MD Discharge: Date of : 41 Report #: [id number] 4. Pain intensity 6-7. 5. Fall risk. The patient has not fallen in the last 3 months. The patient discussed use of spinal cord stimulator. 6. The patient is not on blood thinners. 7. Hypertension. The patient is being treated for hypertension. 8. Opioid therapy. Uses opioid and has signed a contract. 9. Risk assessment tool. 10. Functional assessment tool. 11. Recreational drugs, denied. 12. Tobacco use. The patient denies use of tobacco. 13. Alcohol. The patient does not use alcohol. CLINICAL IMPRESSION: 1. Symptomatic lumbar radiculopathy, status post decompressive laminectomy. 2. Degenerative joint disease affecting her knees bilaterally. 3. Chronic pain syndrome requiring complex medication management. 4. Spinal cord stimulator. The patient is being seen today in regards to the spinal cord stimulator by the company's rep. RECOMMENDATIONS: We discussed treatment options with the patient. The patient has been seen by the spinal cord business services representative. She is going to try to use this more to help allay her pain and discomfort. She will continue with her current use of Duragesic and hydrocodone. She will call us if she has any problems with her medications. We would like to thank you for letting us participate in her care. We hope she continues to improve. <ELECTRONICALLY SIGNED> By: Rachel Brand MD 12/15/17 1421 0914 [id number] Rachel Brand MD /[facility]
[2017-11-12 12:56] VITALS: BP 100/68
== END ==
LOC: PAIN 11-11 07:20
DX: M54.16 Radiculopathy, lumbar region (principal); M17.0 Bilateral primary osteoarthritis of knee; G89.29 Other chronic pain; Z79.899 Other long term (current) drug therapy

== ENCOUNTER → 2018-01-10 | Outpatient (CLI) | payer OTHER, BC ==
[~2018-01-10] VITALS: Ht 167.6 cm; Wt 79.6 kg
--- NOTE | ~2018-01-10 | HPC ---
[facility] [place] [address] PAIN MANAGEMENT CONSULTATION Name: JONAHDENNISKaylinIrvinMOHAN Lavern Room #: [facility] [id number] Admission: 01/10/18 Attend Phys: Toney Springer DO Discharge: Date of : 41 Report #: [id number] THIS REPORT FOR: //name// CC: Brayan Springer DATE OF SERVICE: 01/10/2018 HISTORY OF PRESENT ILLNESS: The patient is a 77-year-old female, long treated for lumbar radiculopathy, status post decompressive laminectomy, axial back pain, chronic pain syndrome requiring complex medication management. I last saw her back in September. My partner, Dr. Adalberto Brand, saw her in my absence on 11/12/2017. She has been continued on Duragesic 12 mcg q.72 hours, hydrocodone 5/325 prescribed 75 tablets a month, but she tells me she only takes 1-1/2 at night (?). 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 She uses it more as a soporific than as a muscle relaxant. Returns to the pain clinic today. She is starting to "settle in" to her new housing arrangement. She and her moved to a intermediate community. They apparently downsized, I believe late last year. She tells me today that she is planning an extended trip to [place]. Her son is becoming an ordained survey associate. She wants to travel to [place] with him in March either before or immediately after the ordination. She notes, however, that she has pain that is exacerbated with prolonged walking. She tells me that she has what sounds like restless leg type symptoms that prevent her from sleeping. She is a very poor historian. It sounds like she has been prescribed Mirapex 0.25 at bedtime. She states she was taking 2 at night for quite some time. A few months ago, she decided it was not working and now takes it only 0-1 at bedtime. It is unclear if she is actually taking it. Again, she really is not using the tizanidine for spasm. She tells me she "feels handicapped because of her knees and back pain." She tells me she can walk for 30 minutes and stands for 10-15 minutes. Has subjective weakness, although on further discussion, it is actually pain that prevents her from climbing stairs (states she has a chair lift in her home). We reviewed the fact that opiate medications are being used to provide analgesia adequate to support activities of daily living, not attempting to achieve a specific pain score on the 0-10 Visual Analog Scale. The current opiate medications are providing sufficient analgesia to allow the patient to participate in activities of daily living. The patient is not exhibiting any aberrant behavior suggestive of drug diversion. The patient is not having any adverse reactions to medications. The patient is not suffering from daytime somnolence or mental acuity changes. The patient is managing opiate-induced constipation with appropriate [id number] agents and dietary [address] [address] PAIN MANAGEMENT CONSULTATION Name: MOHAN ZEPEDA Room #: REG GIGI Arteaga#: [id number] Admission: 01/10/18 Attend Phys: Toney Springer DO Discharge: Date of : 41 Report #: [id number] considerations. The patient was counseled on concern for caution with operating a motor vehicle while using opiate medications. A physical exam was performed and the patient's functional status was evaluated. All patients with back pain were advised against the bed rest greater than 4 days and were advised to return to normal activities. Pain score assessment was noted and the treatment plan was reviewed with the patient. All current medications, both prescribed and OTC were reviewed and reconciled on the electronic medical record. Tobacco screening was accomplished and smoking cessation was advised when indicated. BMI was noted and diet/exercise modification was recommended for all patients following outside normal parameters. I reviewed with the patient today their responsibilities to safeguard prescription medications, reviewed their responsibility to utilize medications only as prescribed by the physician. They are to seek and receive pain medications only from 1 physician group ( [facility]). They are to use 1 pharmacy and keep the clinic informed if they change pharmacies. Their responsibilities include making followup visits in a timely fashion and to avoid abrupt discontinuation of medication usage. Their responsibilities further include bringing their medications (bottles from the pharmacy with residual pills) to the visit for possible confirmation of pill counts and the patient understands it is their responsibility to submit to random drug screens to ensure both that the medications prescribed are present, and that no other controlled substances are present. All prescriptions provided today were generated electronically. PHYSICAL EXAMINATION: GENERAL: Shows a 77-year-old female, BMI is 28.3 kilograms per meter squared. VITAL SIGNS: Blood pressure is 138/71, pulse 85, respirations of 16. NEUROLOGIC: She is generally alert and oriented, though again a very poor historian. MUSCULOSKELETAL: Rises from chair using the armrest. Diffuse tenderness across the low back. Cervical range of motion is good. Upper extremity strength is preserved. Gait is tandem. Lower extremity strength is symmetric. Straight leg raise is negative. Deep tendon reflexes are preserved in the patella and Achilles. History of painful knees, though no ballottable edema is appreciated at this time. LABORATORY DATA: Last random drug screen 03/15/2017 was positive for hydrocodone, fentanyl, tizanidine, sertraline, diclofenac and acetaminophen. RECOMMENDATION: Continue Duragesic 12 mcg q.72 hours, hydrocodone 5/325. Encourage 1-2 tablets at bedtime. I suggested she discontinue the Mirapex. We will start Requip 0.25 mg, one tablet at bedtime for 3 nights, 2 tablets at bedtime for 3 nights and then 3 tablets as needed at bedtime. If this gives [facility] [address] [place] [address] PAIN MANAGEMENT CONSULTATION Name: MOHAN ZEPEDA Room #: REG [facility]#: [id number] Admission: 01/10/18 Attend Phys: Toney Springer DO Discharge: Date of : 41 Report #: [id number] her better sleep, we will simply continue that medication 1 month. If, however, she still has sleep disrupted either from pain or RLS type symptoms, we may consider short course of a soporific/sleep aid. Otherwise, we will continue the patient on baseline medication. Follow up in 1 month for reevaluation. Buccal swab was accomplished today. <ELECTRONICALLY SIGNED> By: Toney Springer DO 01/12/18 [id number] Toney Springer DO /cooper
[2018-01-10 13:21] VITALS: BP 138/71
== END ==
LOC: PAIN 07:22
DX: M54.16 Radiculopathy, lumbar region (principal); M96.1 Postlaminectomy syndrome, not elsewhere classified; Z79.899 Other long term (current) drug therapy

== ENCOUNTER → 2018-04-19 | Outpatient (CLI) | payer OTHER, BC ==
[~2018-04-19] VITALS: Ht 167.6 cm; Wt 77.3 kg
--- NOTE | ~2018-04-19 | HPC ---
[facility] [place] [address] PAIN MANAGEMENT CONSULTATION Name: MOHAN ZEPEDA Room #: REG [facility].#: [id number] Admission: 04/19/18 Attend Phys: Rangel Springer DO Discharge: Date of : 41 Report #: [id number] THIS REPORT FOR: //name// CC: Brayan Springer DATE OF SERVICE: 04/19/2018 REFERRING PHYSICIAN: Brayan Cohen MD CHIEF COMPLAINT: Low back pain status post decompressive laminectomy, axial back pain due to DJD and DDD, and bilateral lower extremity pain. HISTORY OF PRESENT ILLNESS: As you know, the patient is a 78-year-old female followed by my partner, Dr. Mohinder Seals for back pain, bilateral lower extremity pain and paresthesias. The patient has been treated successfully with medication management. She returns today in followup visit, rather running low of her medications, requesting refill on therapy. She states her pain remains chronic, sharp and aching; exacerbated with standing and walking; improves with medications, heat, cold compresses and rest. She places pain score today at 4/10. Overall, the patient states she is doing well with medications, reporting 70% improvement in symptoms with the treatment. She wishes to continue medication management. She also returns to review recent urine drug screen to confirm appropriateness. ALLERGIES: No known drug allergies. CURRENT MEDICATIONS: Tizanidine, hydrocodone, fentanyl, celecoxib, diclofenac, losartan, , pravastatin, levothyroxine and sertraline. SOCIAL HISTORY: The patient denies tobacco, alcohol, IV or illicit drug use. She is retired years ago. She is unaccompanied today. IMAGING: No new imaging available. LABORATORY DATA: Buccal drug screen obtained on 01/11/2018 shows positive for fentanyl and hydrocodone. Negative for all other substances. PQRS: The patient has osteoarthritis of the lumbar spine, hands, feet, shoulders and knees. She does not have an history of rheumatoid arthritis. She places pain intensity at 4/10. Denies any fall risk, has not had any fall in the last 3 months. She is not on blood thinners, but is treated for hypertension. She has been on chronic opioids for a long period of time. She is under contract with [facility]. She has a low assessment for opioid addiction. Functional assessment indicates pain impact of 41/70, moderate to [facility] [address] [place] [address] PAIN MANAGEMENT CONSULTATION Name: ARACELIKaylinIrvinMOHAN Lavern Room #: REG [facility]#: [id number] Admission: 04/19/18 Attend Phys: Rangel Springer DO Discharge: Date of : 41 Report #: [id number] severe. PHYSICAL EXAMINATION: VITAL SIGNS: Blood pressure 114/68, pulse is 71, respiratory rate 16 and unlabored. The patient is 98% on room air. Height 5 feet 6 inches tall, weight 170.4 pounds, BMI calculated 27.5. GENERAL: Well-developed, well-nourished, well-hydrated 78-year-old female. She appears her stated age, placing current pain score at around 4/10. HEENT: Normocephalic, atraumatic. Pupils are equal, round, reactive to light. Extraocular muscles are intact. Sclerae are nonicteric without injection. NEUROLOGIC: Cranial nerves 2 through 12 grossly intact. Speech is fluent. EXTREMITIES: Show no clubbing, no cyanosis, no edema. MUSCULOSKELETAL: Lower extremity strength appears symmetrical. Gait is tandem. Seated straight leg raising is negative. Supine straight leg raising is negative. Odalis test is negative. Modified Gaenslen's positive for axial low back pain. ASSESSMENT: 1. Chronic low back pain. 2. Osteoarthritis of the low back, hands, feet, bilateral shoulder and bilateral knees. 3. Failed lumbar spine surgery. 4. Chronic axial pain. 5. Complicated medication management. 6. Chronic intractable pain. We reviewed the fact that opiate medications are being used to provide analgesia adequate to support activities of daily living, not attempting to achieve a specific pain score on the 0-10 Visual Analog Scale. The current opiate medications are providing sufficient analgesia to allow the patient to participate in activities of daily living. The patient is not exhibiting any aberrant behavior suggestive of drug diversion. The patient is not having any adverse reactions to medications. The patient is not suffering from daytime somnolence or mental acuity changes. The patient is managing opiate-induced constipation with appropriate hqxo-fro-fcnhloz agents and dietary considerations. The patient was counseled on concern for caution with operating a motor vehicle while using opiate medications. A physical exam was performed and the patient's functional status was evaluated. All patients with back pain were advised against the bed rest greater than 4 days and were advised to return to normal activities. Pain score assessment was noted and the treatment plan was reviewed with the patient. All current medications, both prescribed and OTC were reviewed and reconciled on the electronic medical record. Tobacco screening was accomplished and smoking cessation was advised when indicated. BMI was noted and diet/exercise modification was recommended for all patients following outside normal parameters. [address] [address] PAIN MANAGEMENT CONSULTATION Name: MOHAN ZEPEDA Room #: REG CLLynn Arteaga#: [id number] Admission: 04/19/18 Attend Phys: Rangel Springer DO Discharge: Date of : 41 Report #: [id number] I reviewed with the patient today their responsibilities to safeguard prescription medications, reviewed their responsibility to utilize medications only as prescribed by the physician. They are to seek and receive pain medications only from 1 physician group ( [facility]). They are to use 1 pharmacy and keep the clinic informed if they change pharmacies. Their responsibilities include making followup visits in a timely fashion and to avoid abrupt discontinuation of medication usage. Their responsibilities further include bringing their medications (bottles from the pharmacy with residual pills) to the visit for possible confirmation of pill counts and the patient understands it is their responsibility to submit to random drug screens to ensure both that the medications prescribed are present, and that no other controlled substances are present. All prescriptions provided today were generated electronically. PLAN: 1. The patient returns today in followup visit for medication management. We had a long discussion today about opioid medication use. The patient understands the risks of continuing this medication. These include a potential addiction, respiratory depression and other physiologic concerns such as constipation, chronic habituation to these medications can lead to decreased salivation, which can lead to teeth loss. The patient states she understands and does wish to continue medication management. 2. The patient was provided prescription for fentanyl 12 mcg patch 1 patch q.72 hours, given the patient #10 patches, released today, 4 weeks from today, 2 months with the medication. 3. The patient was provided a prescription of hydrocodone 5/325 two tabs to three times a day p.r.n. for pain, #75 released today, 4 weeks from today. 4. We will see the patient back in followup visit in 2 months for medication therapy. 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 By: [id number] Rangel Springer DO /nt
[2018-04-19 09:12] VITALS: BP 114/68
== END ==
LOC: PAIN 08:10
DX: M47.816 Spondylosis without myelopathy or radiculopathy, lumbar region (principal); M17.0 Bilateral primary osteoarthritis of knee; M19.012 Primary osteoarthritis, left shoulder; M19.011 Primary osteoarthritis, right shoulder; G89.4 Chronic pain syndrome; Z79.899 Other long term (current) drug therapy

== ENCOUNTER → 2020-08-12 | Outpatient (CLI) | payer OTHER, BC ==
[~2020-08-12] VITALS: Ht 15.2 cm; Wt 74.7 kg
[~2020-08-12] MED LIST changes: +NEURONTIN300 MG PO
[2020-08-12 10:32] VITALS: BP 111/75
--- NOTE | 2020-08-12 11:08 | NUR ---
Pain Clinic Assessment: 1. History of Osteoarthritis: BACK BILAT KNEES BILAT SHOULDERS BILAT HIPS HANDS AND FEET History of Rheumatoid Arthritis: UNKNOWN 2. Height: 5 ft. 6 in. 15.2 cm. Weight: 164.6 lb. oz. 74.662 kg. Patient's BMI: 3231.6 3. Vital Signs: BP: 111/75 Pulse: 85 Resp: 16 Temp: 02 Sat: 97 ECG Mon: 4. Pain Intensity: 10 5. Fall Risk: Dizziness: N Needs help standing or walking: Y Fallen in the last 3 months: N Fall risk comments: 6. Patient on Blood Thinner: None 7. History of Hypertension: Y 8. Opioid Therapy greater than 6 weeks: N Opiate Contract Signed: 05/22/16 9. Risk Assessment Tool Provided: 0-LOW 10. Functional Assessment Tool: 50/70 11. Recreational Drug Use: Never Drug Type: Tobacco Use: Never Smoker Tobacco Type: Amount or Packs/day: How Many Years: Alcohol Use: No Frequency: Quant:
== END ==
LOC: PAIN 06:50
PROVIDERS: ATTEND Anesthesiology Pain Medicine
DX: M25.561 Pain in right knee (principal); M25.562 Pain in left knee; M17.11 Unilateral primary osteoarthritis, right knee; M17.12 Unilateral primary osteoarthritis, left knee; M19.011 Primary osteoarthritis, right shoulder; M19.012 Primary osteoarthritis, left shoulder; M16.0 Bilateral primary osteoarthritis of hip; M96.1 Postlaminectomy syndrome, not elsewhere classified; F32.9 Major depressive disorder, single episode, unspecified; I10 Essential (primary) hypertension